=== PATIENT | female | born 1975 | race American Indian/Alaskan Native ===

== ENCOUNTER 2016-12-21 16:49 | Inpatient (IN) | payer MEDICAID ==
[2016-12-21] MEDS ORDERED: TORADOL IV ONE (21:21)
--- NOTE | 2016-12-21 21:25 | Emergency Department Report ---
ED Extremity Problem HPI - General Chief complaint: Extremity Problem,Nontraumatic Stated complaint: LEFT SIDE NUMB/SHARP PAIN Time Seen by Provider: 12/21/16 21:13 Source: patient Mode of arrival: Ambulatory Limitations: No Limitations - History of Present Illness Initial comments: 41-year-old female with a past medical history asthma, hypertension, and tubal ligation presents to the hospital complains of left-sided arm numbness and sharp pains several days. Symptoms are constant and tingling and sharp in nature without aggravating or alleviating factors. Patient also having intermittent frontal headache with dizzy spells. Yesterday she developed left- sided neck pain. Pain overall rated 9/10 in intensity without aggravating or alleviating factors. She denies recent injury. She is right-hand dominant. No reports of weakness or lower extremity symptoms. - Related Data Previous Rx's Medication Instructions Recorded Last Taken Type amLODIPine [Norvasc] 20 mg PO DAILY #30 tablet 09/14/15 12/21/16 Rx Pnv with Ca,No.72/Iron/FA 1 each PO QDAY #30 tablet 11/14/15 12/21/16 Rx [ Vitamin with Low Iron] metroNIDAZOLE 0.75% [Metrogel 1 applicatio TP QHS #1 tube 11/14/15 Unknown Rx 0.75% TOPICAL] Azithromycin [Zithromax Z-RUBÉN] 250 mg PO DAILY #1 package 12/28/15 Unknown Rx Benzonatate [Tessalon Perles] 100 mg PO Q8HR PRN #60 capsule 12/28/15 Unknown Rx predniSONE [Deltasone] 20 mg PO QDAY #10 tab 12/28/15 11/03/15 Rx Allergies Allergy/AdvReac Type Severity Reaction Status Date / Time acetaminophen [From Vicodin] Allergy Swelling Verified 09/14/15 06:28 albuterol Allergy Swelling Verified 02/13/14 18:05 codeine Allergy Swelling Verified 09/14/15 06:28 diphenhydramine HCl Allergy Swelling Verified 09/14/15 06:28 [From Benadryl] hydrocodone bitartrate Allergy Swelling Verified 09/14/15 06:28 [From Vicodin] iodine Allergy Rash Verified 02/13/14 18:05 ketorolac tromethamine Allergy Angioedema Verified 12/22/16 12:02 [From Toradol] morphine Allergy Swelling Verified 09/14/15 06:29 oxycodone [Oxycodone] Allergy Rash Verified 02/13/14 18:05 tramadol Allergy Swelling Verified 09/14/15 06:28 ED Review of Systems ROS: Stated complaint: LEFT SIDE NUMB/SHARP PAIN Other details as noted in HPI Comment: All other systems reviewed and negative Other: Constitutional: No fevers chills Eyes: No eye pain visual changes ENT: No ear pain or throat pain Neck: As per HPI Resp: Denies cough wheezing shortness of breath Cardiovascular: Denies chest pain, palpitations, syncope GI: Denies abdominal pain, nausea, vomiting, diarrhea Musculoskeletal: Denies back pain, joint swelling Skin: Denies rash, lesions, erythema Neurologic: As per HPI Psychiatric: Denies suicidal ideation, hallucinations ED Past Medical Hx - Past Medical History Previous Medical History?: Yes Hx Hypertension: Yes Hx Asthma: Yes - Surgical History Past Surgical History?: Yes Additional Surgical History: ablation for fibroid tumor. TUBAL LIGATION, October 2016 ectopic status post tubal ligation requiring left tube removal - Social History Smoking Status: Never Smoker Substance Use Type: None - Medications Home Medications: Home Medications Medication Instructions Recorded Confirmed Last Taken Type amLODIPine [Norvasc] 20 mg PO DAILY #30 tablet 09/14/15 12/23/16 12/21/16 Rx Pnv with Ca,No.72/Iron/FA 1 each PO QDAY #30 tablet 11/14/15 12/23/16 12/21/16 Rx [ Vitamin with Low Iron] metroNIDAZOLE 0.75% [Metrogel 1 applicatio TP QHS #1 tube 11/14/15 12/23/16 Unknown Rx 0.75% TOPICAL] Azithromycin [Zithromax Z-RUBÉN] 250 mg PO DAILY #1 package 12/28/15 12/23/16 Unknown Rx Benzonatate [Tessalon Perles] 100 mg PO Q8HR PRN #60 capsule 12/28/15 12/23/16 Unknown Rx predniSONE [Deltasone] 20 mg PO QDAY #10 tab 12/28/15 12/23/16 11/03/15 Rx ED Physical Exam - General Limitations: No Limitations - Other Other exam information: General: No limitations, patient is alert in no acute distress Head exam: Atraumatic, normocephalic Eyes exam: Normal appearance, pupils equal reactive to light, extraocular movements intact ENT: Moist mucous membrane, normal oropharynx Neck exam: Normal inspection, full range of motion, left-sided neck tenderness at the sternocleidomastoid and trapezius muscle Respiratory exam: Clear to auscultation bilateral, no wheezes, rales, crackles Cardiovascular: Normal rate and rhythm, normal heart sounds Abdomen: Soft, nondistended, and nontender, with normal bowel sounds, no rebound, or guarding Extremity: Full range of motion normal inspection no deformity Back: Normal Inspection, full range of motion, no tenderness Neurologic: Alert, oriented x3, cranial nerves intact, 5/5 upper and lower extremity strength. Decreased sensation to pinprick on the left upper and left lower extremity Psychiatric: normal affect, normal mood Skin: Warm, dry, intact ED Course Vital Signs 12/21/16 12/21/16 12/21/16 17:31 21:20 21:31 Temperature 98.5 F 98 F 98 F Pulse Rate 74 84 65 Respiratory 16 18 18 Rate Blood Pressure 175/94 Blood Pressure 165/83 158/76 [Left] O2 Sat by Pulse 100 98 98 Oximetry 12/21/16 12/21/16 12/21/16 22:14 22:36 22:37 Temperature 98 F 98 F Pulse Rate 129 H 105 H 119 H Respiratory 20 29 H Rate Blood Pressure 126/61 177/87 Blood Pressure 157/109 177/87 [Left] O2 Sat by Pulse 100 100 Oximetry 12/21/16 12/21/16 12/22/16 22:53 23:31 00:32 Temperature Pulse Rate 130 H 123 H Respiratory 40 H 16 Rate Blood Pressure Blood Pressure 170/89 110/60 [Left] O2 Sat by Pulse 97 100 100 Oximetry 12/22/16 12/22/16 12/22/16 01:25 02:10 02:17 Temperature Pulse Rate 120 H 113 H Respiratory 16 17 18 Rate Blood Pressure Blood Pressure 110/63 [Left] O2 Sat by Pulse 100 98 Oximetry 12/22/16 12/22/16 02:21 02:30 Temperature Pulse Rate 117 H 109 H Respiratory 22 15 Rate Blood Pressure 137/83 Blood Pressure [Left] O2 Sat by Pulse 99 Oximetry - Reevaluation(s) Reevaluation #1: 12/21/16 21:24 Toradol ordered for pain Reevaluation #2: 12/21/16 23:38 Patient developed allergic reaction after receiving Toradol. She began complaining of throat tightness and pruritic rash. Patient is treated with Solu -Medrol without improvement. She has an allergy to Benadryl. Patient also received Decadron and subcutaneous epinephrine 0.3 mg in addition to 2 separate boluses of hydralazine 10 mg to control blood pressure. Patient continued to get more agitated, tachycardic, and complaining that her throat was tight and painful. She refused to speak due to pain however, when she would speak there was no hoarseness or muffled voice sounds noted. Since meds are not helping I offered to intubate pt. This was discussed with, pt, her mother, and her fiance prior to procedure. After intubation case was rediscussed with fiance and mother regarding successful intubation and stabilization - Consultations Consultation #1: 12/22/[address] consult with Dr. diaz ordered - Intubation Time Out Performed: Yes Sedative: Etomidate Mg Given: 20 Paralytic: Succinylcholine Mg Given: 100 Laryngoscope: Tariq Size: 3 ET Tube Size: 7.5 Tube Secured Depth (cm): 20 Tube Secured Location: lips Tube Placement Confirmation: visualized tube passing t, equal breath sounds bilat, no breath sounds over epi, confirmation by capnometr Patient Tolerated Procedure: well Intubation Complications: none Additional Comments: Informed respiratory to advance ET tube to 22 at the lip based on chest x-ray ED Medical Decision Making - Lab Data Result diagrams: 12/23/16 04:05 12/23/16 04:05 Lab Results 12/21/16 12/21/16 Range/Units 21:47 21:47 WBC 5.8 (4.5-11.0) K/mm3 RBC 4.38 (3.65-5.03) M/mm3 Hgb 13.0 (10.1-14.3) gm/dl Hct 39.3 (30.3-42.9) % MCV 90 (79-97) fl MCH 30 (28-32) pg MCHC 33 (30-34) % RDW 13.0 L (13.2-15.2) % Plt Count 225 (140-440) K/mm3 Lymph % (Auto) 45.5 H (13.4-35.0) % [place] % (Auto) 10.5 H (0.0-7.3) % Eos % (Auto) 1.6 (0.0-4.3) % Baso % (Auto) 0.7 (0.0-1.8) % Lymph # 2.7 (1.2-5.4) K/mm3 [place] # 0.6 (0.0-0.8) K/mm3 Eos # 0.1 (0.0-0.4) K/mm3 Baso # 0.0 (0.0-0.1) K/mm3 Seg Neutrophils % 41.7 (40.0-70.0) % Seg Neutrophils # 2.4 (1.8-7.7) K/mm3 Sodium 140 (137-145) mmol/L Potassium 3.7 (3.6-5.0) mmol/L Chloride 103.2 (98-107) mmol/L Carbon Dioxide 24 (22-30) mmol/L Anion Gap 17 mmol/L BUN 10 (7-17) mg/dL Creatinine 0.7 (0.7-1.2) mg/dL Estimated GFR > 60 ml/min BUN/Creatinine Ratio 14.28 % Glucose 93 (65-100) mg/dL Calcium 8.9 (8.4-10.2) mg/dL Magnesium 2.1 (1.7-2.3) mg/dL - Radiology Data Radiology results: report reviewed, image reviewed (cxr: et tube above voi, will advance ) ct head: naf ct cervical spine: naf - Medical Decision Making Initially she comes here for left-sided paresthesias develop an allergic reaction after IV Toradol. Patient failed treatment in the ED and required intubation for airway stabilization. Patient would require ICU admission due to vent - Differential Diagnosis herniated disc, CVA, neuropathy, paresthesias Critical Care Time: Yes Critical care time in (mins) excluding proc time.: 45 (observing at beside, speaking to family on phone, reassesing and directing meds) Critical care attestation.: If time is entered above; I have spent that time in minutes in the direct care of this critically ill patient, excluding procedure time. ED Disposition Clinical Impression: Paresthesia and pain of left extremity, Allergic reaction to drug, HTN ( hypertension), Endotracheally intubated Disposition: OP ADMITTED IP TO THIS HOSP Is pt being admited?: Yes Condition: Stable Time of Disposition: 00:56 (Matias/hosp)
[2016-12-21] MEDS ORDERED: QUELICIN ONE (21:56)
[2016-12-21] MEDS ORDERED: AMIDATE IV ONE (21:56)
[2016-12-21 22:06] LABS: Basophils % (Auto) 0.7 % (0.0-1.8); Eosinophils % (Auto) 1.6 % (0.0-4.3); Hematocrit 39.3 % (30.3-42.9); Mean Corpuscular HGB Conc 33 % (30-34); Mean Corpuscular Hemoglobin 30 pg (28-32); Mean Corpuscular Volume 90 fl (79-97); Platelet Count 225 K/mm3 (140-440); Red Blood Count 4.38 M/mm3 (3.65-5.03); White Blood Count 5.8 K/mm3 (4.5-11.0)
[2016-12-21] MEDS ORDERED: APRESOLINE ONE (22:13)
[2016-12-21 22:20] LABS: Anion Gap 17 mmol/L; BUN/Creatinine Ratio 14.28; Blood Urea Nitrogen 10 mg/dL (7-17); Calcium 8.9 mg/dL (8.4-10.2); Carbon Dioxide 24 mmol/L (22-30); Chloride 103.2 mmol/L (98-107); Glucose 93 mg/dL (65-100); Magnesium 2.1 mg/dL (1.7-2.3); Potassium 3.7 mmol/L (3.6-5.0); Sodium 140 mmol/L (137-145)
[2016-12-21] MEDS ORDERED: ADRENALIN ONE ×2 (22:24→22:26)
[2016-12-21] MEDS ORDERED: DECADRON ONE (22:25)
[2016-12-21] MEDS ORDERED: ADRENALINE P/F SUB-Q ONE (22:27)
[2016-12-21] MEDS ORDERED: APRESOLINE IV ONE (22:27)
[2016-12-21] MEDS ORDERED: DECADRON IV ONE (22:29)
[2016-12-21] MEDS ORDERED: VASELINE LIP THERAPY TP PRN (23:31)
[2016-12-21] MEDS ORDERED: ARTIFICIAL TEARS OPHTH OINT OU PRN (23:31)
[2016-12-21] MEDS ORDERED: ATIVAN ONE (23:44)
[2016-12-21] MEDS ORDERED: NACL 0.9% 500 ML IV SCH (23:45)
[2016-12-21] MEDS ORDERED: ATIVAN IV ONE (23:47)
[2016-12-21] MEDS: DIPRIVAN 10 MG/ML 1,000 MG/100 ML BOTTLE IV SCH (23:50)
--- NOTE | 2016-12-22 00:38 | Cat Scan Report ---
FINAL REPORT PROCEDURE: CT HEAD/BRAIN WO CON TECHNIQUE: Computerized tomography of the head was performed without contrast material. HISTORY: left arm and leg paresthesia COMPARISON: No prior studies are available for comparison. FINDINGS: Skull and scalp: Normal. Paranasal sinuses: Normal. Ventricles and subarachnoid spaces: Normal. Cerebrum: No evidence of hemorrhage, acute infarction or mass . Cerebellum and brainstem: No evidence of hemorrhage, acute infarction or mass. Vasculature: Normal. Comments: None. IMPRESSION: Normal Examination
--- NOTE | 2016-12-22 00:41 | Cat Scan Report ---
FINAL REPORT PROCEDURE: CT CERVICAL SPINE WO CON TECHNIQUE: Computerized tomography of the cervical spine was performed from the skull base to T1 without contrast material. HISTORY: left arm and leg paresthesia COMPARISON: No prior studies are available for comparison. FINDINGS: The alignment of the vertebral bodies is normal. The heights of the vertebral bodies and the disc spaces are maintained. No acute fracture or dislocation of the cervical spine. The spinal canal is adequate at all levels. IMPRESSION: No evidence of acute fracture or dislocation of the cervical spine..
--- NOTE | 2016-12-22 01:24 | History and Physical Report ---
History of Present Illness Date of examination: 12/22/16 Date of admission: 12/22/16 00:56 Chief complaint: Respiratory failure History of present illness: 41-year-old -[place] female presented to the emergency department for complaints of left-sided arm tingling and pain. Since yesterday she was complaining of neck pain. No weakness, slurred speech. Patient had multiple medication allergies. Patient presented to the emergency department and she was given Toradol for the pain. After that patient started to tightness, difficulty speaking, swelling of the face. Patient patient was intubated and mechanically ventilated by ER physician. Past History Past Medical History: hypertension, other (asthma) Past Surgical History: Other (tubal ligation) Social history: full code, other (couldn't obtained because of patient is intubated and sedated.) Family history: other (couldn't obtained because of patient is intubated and sedated.) Medications and Allergies Allergies Allergy/AdvReac Type Severity Reaction Status Date / Time acetaminophen [From Vicodin] Allergy Swelling Verified 09/14/15 06:28 albuterol Allergy Swelling Verified 02/13/14 18:05 codeine Allergy Swelling Verified 09/14/15 06:28 diphenhydramine HCl Allergy Swelling Verified 09/14/15 06:28 [From Benadryl] hydrocodone bitartrate Allergy Swelling Verified 09/14/15 06:28 [From Vicodin] iodine Allergy Rash Verified 02/13/14 18:05 morphine Allergy Swelling Verified 09/14/15 06:29 oxycodone [Oxycodone] Allergy Rash Verified 02/13/14 18:05 tramadol Allergy Swelling Verified 09/14/15 06:28 Home Medications Medication Instructions Recorded Confirmed Last Taken Type amLODIPine [Norvasc] 20 mg PO DAILY #30 tablet 09/14/15 11/13/15 Unknown Rx Pnv with Ca,No.72/Iron/FA 1 each PO QDAY #30 tablet 11/14/15 Unknown Rx [ Vitamin with Low Iron] metroNIDAZOLE 0.75% [Metrogel 1 applicatio TP QHS #1 tube 11/14/15 Unknown Rx 0.75% TOPICAL] Azithromycin [Zithromax Z-RUBÉN] 250 mg PO DAILY #1 package 12/28/15 Unknown Rx Benzonatate [Tessalon Perles] 100 mg PO Q8HR PRN #60 capsule 12/28/15 Unknown Rx predniSONE [Deltasone] 20 mg PO QDAY #10 tab 12/28/15 Unknown Rx Active Meds: Active Medications Hydrophilic Ointment (Vaseline Lip Therapy) 1 applic TP Q2HR PRN PRN Reason: Dry Lips Propofol (Diprivan 10 Mg/Ml) 1,000 mg in 100 mls @ 2.541 mls/hr IV TITR POONAM; 5 MCG/KG/MIN PRN Reason: Protocol Methylprednisolone Sodium Succinate (Solu-Medrol) 125 mg IV Q8HR POONAM Multi-Ingred Cream/Lotion/Oil/Oint (Artificial Tears Ophth Oint) 1 applic OU Q4HR PRN PRN Reason: Dry Eye(s) Sodium Chloride (Nacl 0.9% 500 Ml) 1 ml IV DIRECT POONAM Review of Systems ROS unobtainable: due to endotracheal tube (couldn't obtained because of patient is intubated and sedated.), due to mental status (couldn't obtained because of patient is intubated and sedated.) Exam - Physical Exam Narrative exam: Patient is intubated, mechanically ventilated and sedated. The patient appeared well nourished and normally developed. Vital signs as documented. Head exam is unremarkable. lip and face swelling. No scleral icterus . Neck is without jugular venous distension, thyromegaly, or carotid bruits. Lungs are clear to auscultation. Cardiac exam reveals regular rate and Rhythm. First and second heart sounds normal. No murmurs, rubs or gallops. Abdominal exam reveals normal bowel sounds, no masses, no organomegaly and no aortic enlargement. Extremities are nonedematous and both femoral and pedal pulses are normal. RADIOLOGICAL HEALTH SPECIALIST: Alert and oriented 3. No focal weakness. - Constitutional Vitals: Temp Pulse Resp BP Pulse Ox 98 F 123 H 16 110/60 100 12/21/16 22:37 12/21/16 23:31 12/21/16 23:31 12/21/16 23:31 12/22/16 00:32 Results - Labs CBC & Chem 7: 12/21/16 21:47 12/21/16 21:47 Labs: Laboratory Last Values WBC 5.8 K/mm3 (4.5-11.0) 12/21/16 21:47 RBC 4.38 M/mm3 (3.65-5.03) 12/21/16 21:47 Hgb 13.0 gm/dl (10.1-14.3) 12/21/16 21:47 Hct 39.3 % (30.3-42.9) 12/21/16 21:47 MCV 90 fl (79-97) 12/21/16 21:47 MCH 30 pg (28-32) 12/21/16 21:47 MCHC 33 % (30-34) 12/21/16 21:47 RDW 13.0 % (13.2-15.2) L 12/21/16 21:47 Plt Count 225 K/mm3 (140-440) 12/21/16 21:47 Lymph % (Auto) 45.5 % (13.4-35.0) H 12/21/16 21:47 [place] % (Auto) 10.5 % (0.0-7.3) H 12/21/16 21:47 Eos % (Auto) 1.6 % (0.0-4.3) 12/21/16 21:47 Baso % (Auto) 0.7 % (0.0-1.8) 12/21/16 21:47 Lymph # 2.7 K/mm3 (1.2-5.4) 12/21/16 21:47 [place] # 0.6 K/mm3 (0.0-0.8) 12/21/16 21:47 Eos # 0.1 K/mm3 (0.0-0.4) 12/21/16 21:47 Baso # 0.0 K/mm3 (0.0-0.1) 12/21/16 21:47 Seg Neutrophils % 41.7 % (40.0-70.0) 12/21/16 21:47 Seg Neutrophils # 2.4 K/mm3 (1.8-7.7) 12/21/16 21:47 Sodium 140 mmol/L (137-145) 12/21/16 21:47 Potassium 3.7 mmol/L (3.6-5.0) 12/21/16 21:47 Chloride 103.2 mmol/L (98-107) 12/21/16 21:47 Carbon Dioxide 24 mmol/L (22-30) 12/21/16 21:47 Anion Gap 17 mmol/L 12/21/16 21:47 BUN 10 mg/dL (7-17) 12/21/16 21:47 Creatinine 0.7 mg/dL (0.7-1.2) 12/21/16 21:47 Estimated GFR > 60 ml/min 12/21/16 21:47 BUN/Creatinine Ratio 14.28 % 12/21/16 21:47 Glucose 93 mg/dL (65-100) 12/21/16 21:47 Calcium 8.9 mg/dL (8.4-10.2) 12/21/16 21:47 Magnesium 2.1 mg/dL (1.7-2.3) 12/21/16 21:47 - Imaging and Cardiology CT Scan - head: report reviewed (no acute intracranial process) Assessment and Plan Assessment and plan: Angioedema 2/2 toradol allergy Acute respiratory failure Left arm tingling Left neck pain - CT head and neck is negative - Patient is intubated and mechanically ventilated - Solu-Medrol Prophylaxis - lovenox Disposition - Admit to the ICU Advance Directives: Yes VTE prophylaxis?: Chemical Plan of care discussed with patient/family: Yes
[2016-12-22] MEDS ORDERED: ATIVAN IV ONE (01:32)
[2016-12-22] MEDS ORDERED: DIPRIVAN 10 MG/ML 1,000 MG/100 ML BOTTLE IV ONE ×2 (01:33→06:43)
[2016-12-22] MEDS: DIPRIVAN 10 MG/ML 1,000 MG/100 ML BOTTLE IV SCH (04:13)
[2016-12-22 05:54] LABS: ISTAT Base Excess -1; ISTAT HCO3 23.6; ISTAT PH 7.402 (7.35-7.45); ISTAT PO2 161 (80-105); ISTAT SO2 99; ISTAT TCO2 25
[2016-12-22 06:30] LABS: ISTAT Base Excess -3; ISTAT HCO3 22.1; ISTAT PH 7.384 (7.35-7.45); ISTAT PO2 72 (80-105); ISTAT SO2 94; ISTAT TCO2 23
--- NOTE | 2016-12-22 07:42 | XRay Report ---
Single view chest: Compared to 12/28/15. History: ET tube placement. Findings: Normal cardiomediastinal silhouette. Trachea is midline. Tip of endotracheal tube in normal position. No consolidation, pneumothorax or pleural effusion. Impression: Tip of endotracheal tube in normal position. No acute lung changes.
--- NOTE | 2016-12-22 08:21 | Admit Criteria Form ---
Admission Criteria Documentation: RESPIRATORY FAILURE GRG Clinical Indications for Admission to Inpatient Care (Place 'X' for any and all applicable criteria): Hospital admission is needed for appropriate care of the patient because of acute respiratory failure or insufficiency as indicated by ANY ONE of the following(1)(2)(3)(4)(5)(6)(7)(8): []I. Mechanical ventilation needed (acute invasive or noninvasive) [ ]II. Severe ventilation deficit as indicated by ANY ONE of the following (9) [ ]a) Respiratory acidosis (pH less than 7.32 and partial pressure of carbon dioxide greater than 40 mm Hg (5.3 kPa)) [ ]b) Partial pressure of carbon dioxide greater than 44 mm Hg (5.9 kPa ) (new) [ ]c) Airflow measurements less than 25% of predicted (eg, peak expiratory flow rate less than 100 L/minute) [ ]d) Forced vital capacity less than 15 mL/kg of ideal body weight, or 50% decrease in vital capacity from baseline [ ]III. Noncardiac pulmonary edema not resolving with rapid emergency treatment (8) []IV. Severe respiratory distress as indicated by ANY ONE of the following: []a) Severe tachypnea (respiratory rate greater than 30, greater than 45 for 6-month-old, greater than 60 for ) []b) Severe hypoxemia (partial pressure of oxygen less than 50 mm Hg ( 6.7 kPa) on greater than 50% oxygen or partial pressure of oxygen to FIO2 ratio less than 200) [ ]c) Mental status deterioration from respiratory disease [X]V. Airway obstruction or inadequate protection [A](10)(11) The original [employer] content created by [employer] has been revised. The portions of the content which have been revised are identified through the use of italic text or in bold, and [employer] has neither reviewed nor approved the modified material. All other unmodified content is copyright [employer]. Please see references footnoted in the original [employer] edition 2016 Admission Criteria Met: Yes
--- NOTE | 2016-12-22 09:29 | XRay Report ---
Single view chest: Compared to 12/21/16. History: Followup of respiratory failure. Findings: Normal cardiomediastinal silhouette. Trachea is midline. Tip of endotracheal tube in normal position. No consolidation, pneumothorax or pleural effusion. Impression: No acute cardiopulmonary findings.
[2016-12-22] MEDS: LOVENOX SUB-Q SCH (09:43)
[2016-12-22] MEDS: PEPCID IV SCH ×2 (09:44→21:45)
[2016-12-22] MEDS ORDERED: PANCREAZE DR 10,500 UNIT FEEDTUBE PRN (10:09)
[2016-12-22] MEDS ORDERED: SIMPLE SYRUP FEEDTUBE PRN ×2 (10:09)
[2016-12-22] MEDS ORDERED: SODIUM BICARBONATE FEEDTUBE PRN (10:09)
[2016-12-22 10:30] LABS: ISTAT Base Excess -3; ISTAT HCO3 21.9; ISTAT PCO2 33.9 (35-45); ISTAT PH 7.418 (7.35-7.45); ISTAT PO2 125 (80-105); ISTAT SO2 99; ISTAT TCO2 23
--- NOTE | 2016-12-22 10:56 | Progress Note ---
Assessment and Plan Assessment and plan: --Angioedema Allergic reaction to Toradol Continue steroids, currently she support, antihistamines --Acute respiratory failure secondary to angioedema Ventilatory support, nebulizers, steroids, pulmonary following ----Left sided tingling and numbness Workup is in progress --DVT prophylaxis with Lovenox --GI prophylaxis with Pepcid --Full CODE STATUS Closely monitor the patient had just the management as needed Consults and recommendations noted and appreciated Plan of care discussed with the patient and the family member at the bedside The high probability of a clinically significant, sudden or life threatening deterioration of the [respiratory, immunologic] system(s) required my full and direct attention, intervention and personal management. The aggregate critical care time was [32] minutes. This time is in addition to time spent performing reported procedures but includes the following: [x] Data Review and interpretation [x] Patient assessment and monitoring of vital signs [x] Documentation [x] Medication orders and management History Interval history: Patient seen and evaluated this morning medical records reviewed Admitted with angioedema, secondary to drug allergy, and patient is orally intubated on ventilatory support History not really clear, patient boyfriend at the bedside Patient is awake and able to communicate on ventilatory support not in acute distress Hospitalist Physical - Constitutional Vitals: Temp Pulse Resp BP Pulse Ox 98.4 F 93 H 16 139/77 100 12/22/16 08:00 12/22/16 10:21 12/22/16 10:21 12/22/16 10:21 12/22/16 10:21 General appearance: Present: no acute distress, other (intubated on ventilatory support ) - EENT Eyes: Present: PERRL, EOM intact - Neck Neck: Present: supple, normal ROM - Respiratory Respiratory effort: normal Respiratory: bilateral: diminished, rhonchi (occasional) - Cardiovascular Rhythm: regular Heart Sounds: Present: S1 & S2 - Extremities Extremities: no ischemia, pulses intact, pulses symmetrical - Abdominal General gastrointestinal: soft, non-tender, non-distended, normal bowel sounds - Integumentary Integumentary: Present: clear, warm - Psychiatric Psychiatric: appropriate mood/affect, cooperative - Neurologic Neurologic: other (intubated On ventilator support) Results - Labs CBC & Chem 7: 12/21/16 21:47 12/21/16 21:47 Labs: Laboratory Last Values WBC 5.8 K/mm3 (4.5-11.0) 12/21/16 21:47 RBC 4.38 M/mm3 (3.65-5.03) 12/21/16 21:47 Hgb 13.0 gm/dl (10.1-14.3) 12/21/16 21:47 Hct 39.3 % (30.3-42.9) 12/21/16 21:47 MCV 90 fl (79-97) 12/21/16 21:47 MCH 30 pg (28-32) 12/21/16 21:47 MCHC 33 % (30-34) 12/21/16 21:47 RDW 13.0 % (13.2-15.2) L 12/21/16 21:47 Plt Count 225 K/mm3 (140-440) 12/21/16 21:47 Lymph % (Auto) 45.5 % (13.4-35.0) H 12/21/16 21:47 [place] % (Auto) 10.5 % (0.0-7.3) H 12/21/16 21:47 Eos % (Auto) 1.6 % (0.0-4.3) 12/21/16 21:47 Baso % (Auto) 0.7 % (0.0-1.8) 12/21/16 21:47 Lymph # 2.7 K/mm3 (1.2-5.4) 12/21/16 21:47 [place] # 0.6 K/mm3 (0.0-0.8) 12/21/16 21:47 Eos # 0.1 K/mm3 (0.0-0.4) 12/21/16 21:47 Baso # 0.0 K/mm3 (0.0-0.1) 12/21/16 21:47 Seg Neutrophils % 41.7 % (40.0-70.0) 12/21/16 21:47 Seg Neutrophils # 2.4 K/mm3 (1.8-7.7) 12/21/16 21:47 POC ABG pH 7.418 (7.35-7.45) 12/22/16 10:21 POC ABG pCO2 33.9 (35-45) L 12/22/16 10:21 POC ABG pO2 125 (80-105) H 12/22/16 10:21 POC ABG HCO3 21.9 12/22/16 10:21 POC ABG Total CO2 23 12/22/16 10:21 POC ABG O2 Sat 99 12/22/16 10:21 POC ABG Base Excess -3 12/22/16 10:21 FiO2 25 % 12/22/16 10:21 Sodium 140 mmol/L (137-145) 12/21/16 21:47 Potassium 3.7 mmol/L (3.6-5.0) 12/21/16 21:47 Chloride 103.2 mmol/L (98-107) 12/21/16 21:47 Carbon Dioxide 24 mmol/L (22-30) 12/21/16 21:47 Anion Gap 17 mmol/L 12/21/16 21:47 BUN 10 mg/dL (7-17) 12/21/16 21:47 Creatinine 0.7 mg/dL (0.7-1.2) 12/21/16 21:47 Estimated GFR > 60 ml/min 12/21/16 21:47 BUN/Creatinine Ratio 14.28 % 12/21/16 21:47 Glucose 93 mg/dL (65-100) 12/21/16 21:47 Calcium 8.9 mg/dL (8.4-10.2) 12/21/16 21:47 Magnesium 2.1 mg/dL (1.7-2.3) 12/21/16 21:47
--- NOTE | 2016-12-22 11:31 | Consultation ---
History of Present Illness Consult date: 12/22/16 Requesting physician: JOHN MTZ Reason for consult: other (Acute Resp Failure) History of present illness: PULMONARY/CCM CONSULT NOTE (Full dictation # [id number]) Please see dictated notes for full details Past History Past Medical History: hypertension, other (asthma) Past Surgical History: Other (tubal ligation) Social history: full code, other (couldn't obtained because of patient is intubated and sedated.) Family history: other (couldn't obtained because of patient is intubated and sedated.) Medications and Allergies Allergies Allergy/AdvReac Type Severity Reaction Status Date / Time acetaminophen [From Vicodin] Allergy Swelling Verified 09/14/15 06:28 albuterol Allergy Swelling Verified 02/13/14 18:05 codeine Allergy Swelling Verified 09/14/15 06:28 diphenhydramine HCl Allergy Swelling Verified 09/14/15 06:28 [From Benadryl] hydrocodone bitartrate Allergy Swelling Verified 09/14/15 06:28 [From Vicodin] iodine Allergy Rash Verified 02/13/14 18:05 ketorolac tromethamine Allergy Angioedema Verified 12/22/16 12:02 [From Toradol] morphine Allergy Swelling Verified 09/14/15 06:29 oxycodone [Oxycodone] Allergy Rash Verified 02/13/14 18:05 tramadol Allergy Swelling Verified 09/14/15 06:28 Home Medications Medication Instructions Recorded Confirmed Last Taken Type amLODIPine [Norvasc] 20 mg PO DAILY #30 tablet 09/14/15 11/13/15 Unknown Rx Pnv with Ca,No.72/Iron/FA 1 each PO QDAY #30 tablet 11/14/15 Unknown Rx [ Vitamin with Low Iron] metroNIDAZOLE 0.75% [Metrogel 1 applicatio TP QHS #1 tube 11/14/15 Unknown Rx 0.75% TOPICAL] Azithromycin [Zithromax Z-RUBÉN] 250 mg PO DAILY #1 package 12/28/15 Unknown Rx Benzonatate [Tessalon Perles] 100 mg PO Q8HR PRN #60 capsule 12/28/15 Unknown Rx predniSONE [Deltasone] 20 mg PO QDAY #10 tab 12/28/15 Unknown Rx Active Meds: Active Medications Lipase/Protease/Amylase (Poncho Falcon 10,500 Unit) 1 each FEEDTUBE PRN PRN PRN Reason: For Clogged Feeding Tube Enoxaparin Sodium (Lovenox) 40 mg SUB-Q QDAY@1000 POONAM Last Admin: 12/22/16 09:43 Dose: 40 mg Famotidine (Pepcid) 20 mg IV BID [facility] Last Admin: 12/22/16 09:44 Dose: 20 mg Hydrophilic Ointment (Vaseline Lip Therapy) 1 applic TP Q2HR PRN PRN Reason: Dry Lips Propofol (Diprivan 10 Mg/Ml) 1,000 mg in 100 mls @ 2.541 mls/hr IV TITR POONAM; 5 MCG/KG/MIN PRN Reason: Protocol Last Titration: 12/22/16 08:30 Dose: 0 mcg/kg/min, 0 mls/hr Methylprednisolone Sodium Succinate (Solu-Medrol) 125 mg IV Q8HR [facility] Last Admin: 12/22/16 05:12 Dose: 125 mg Multi-Ingred Cream/Lotion/Oil/Oint (Artificial Tears Ophth Oint) 1 applic OU Q4HR PRN PRN Reason: Dry Eye(s) Simple Syrup (Simple Syrup) 15 ml FEEDTUBE PRN PRN PRN Reason: Hypoglycemia Simple Syrup (Simple Syrup) 30 ml FEEDTUBE PRN PRN PRN Reason: Hypoglycemia Sodium Bicarbonate (Sodium Bicarbonate) 325 mg FEEDTUBE PRN PRN PRN Reason: For Clogged Feeding Tube Sodium Chloride (Nacl 0.9% 500 Ml) 1 ml IV DIRECT POONAM Physical Examination Vital signs: Vital Signs Temp Pulse Resp BP Pulse Ox 98.5 F 74 16 175/94 100 12/21/16 17:31 12/21/16 17:31 12/21/16 17:31 12/21/16 17:31 12/21/16 17:31 Results - Laboratory Findings CBC and BMP: 12/21/16 21:47 12/21/16 21:47 ABG POC ABG pH 7.418 (7.35-7.45) 12/22/16 10:21 POC ABG pCO2 33.9 (35-45) L 12/22/16 10:21 POC ABG pO2 125 (80-105) H 12/22/16 10:21 POC ABG HCO3 21.9 12/22/16 10:21 POC ABG Total CO2 23 12/22/16 10:21 POC ABG O2 Sat 99 12/22/16 10:21 Abnormal lab findings: Abnormal Labs 12/22/16 12/22/16 04:59 10:21 POC ABG pCO2 33.9 L POC ABG pO2 161 H 125 H
[2016-12-22] MEDS ORDERED: S2 RACEPINEPHRINE 2.25% IH PRN (14:00)
[2016-12-22] MEDS: D5/0.45NS 1,000 ML IV SCH (19:03)
[2016-12-22] MEDS: NAPROSYN PO PRN (20:23)
--- NOTE | 2016-12-23 02:07 | Consultation ---
CONSULTING PHYSICIAN: Lara Marie MD REASON FOR CONSULTATION: Acute respiratory failure, allergic reaction. CHIEF COMPLAINT AND HISTORY OF PRESENT ILLNESS: The patient is a 41-year-old -[place] female with a past medical history significant, I guess for a diagnosis of asthma, came into the Emergency Room complaining of left-sided arm tingling and pain since yesterday. Since the day before presentation, she was also complaining of neck pain. No weakness, no slurred speech. She had multiple medication allergies and as a result Toradol was chosen to be given to her for pain. After she got the Toradol shot, she started to complain of tightness, difficulty speaking, her face swell up, and she was emergently intubated and mechanically ventilated and ICU admission was requested. When I stopped by to see her, she was resting in bed. She was on pressure support trial, doing well. Still felt a little bit like there was some tightness in her throat, but denied any pain symptoms at that time. Now with regards to her tobacco use/abuse history, described herself as a never smoker in the Emergency Room. That really is as much of the history of presentation as I have. PAST MEDICAL HISTORY: Hypertension, asthma. PAST SURGICAL HISTORY: She has had ablation of a fibroid tumor and had bilateral tubal ligations and in 10/2016, she had an ectopic requiring removal of the left fallopian tube. MEDICATIONS: She was on at the time I stopped by to see her, according to the medication administration record included the following: Lovenox 40 mg subcutaneous daily, Pepcid 20 mg IV b.i.d., Solu-Medrol 125 mg IV q.8h. She had been on a propofol drip for sedation earlier on. ALLERGIES: To Tylenol, to albuterol, to codeine, to Benadryl, amongst other allergies and now Toradol. DIET: Slightly obese. Denies any acute weight loss or gain in the preceding few weeks to months. FAMILY AND SOCIAL HISTORY: Lives in the community. Denied alcohol, tobacco, or illicit drug use or abuse. REVIEW OF SYSTEMS: No loss of consciousness. No new onset seizures. No new onset focal weakness. She had the neck pain. No gross hematochezia or melena. No gross hematuria or dysuria. No hematemesis, no hemoptysis, no emesis. Complete review of systems obtained. Pertinent positives and/or negatives as in body of history above, otherwise noncontributory. PHYSICAL EXAMINATION: VITAL SIGNS: At presentation, she was afebrile, temperature 98.5, pulse 74, respiratory rate 16, blood pressure 175/94, oxygen sats were 100%, inspired oxygen concentration was not recorded. HEAD, EYES, EARS, NOSE, AND THROAT: Pupils are equal, round, about 5 mm, reactive to light. Extraocular muscle movements appear intact. Endotracheal tube was in place, taped at the lips around 23-24 cm. LUNGS: Auscultation of both lung salazar unremarkable. Lungs are clear bilaterally. Good bilateral air movement. NECK: Grossly, no palpable lymph nodes in the supraclavicular or submandibular lymph node chains. HEART: Heart sounds 1 and 2 are heard. There were regular rate and rhythm at the time of my evaluation. ABDOMEN: Soft, flat. Bowel sounds positive, nontender. EXTREMITIES: Without overt digital clubbing, cyanosis, or pedal edema. NEUROLOGIC: The exam was grossly nonfocal. LABORATORY DATA: From my review are as follows: White cell count 5800, hemoglobin 13.0, hematocrit 39.3, and platelets 225. Arterial blood gas showed a pH of 7.38, pCO2 of 37, pO2 of 72 that was on 50% FiO2 at that time. Serum sodium 140, potassium 3.7, chloride 103, bicarbonate 24, BUN 10, creatinine 0.7, and glucose of 93. On CPAP, arterial blood gas showed a pH of 7.42, pCO2 of 34, pO2 of 125 that was on CPAP 10/5 and 25% FiO2. RADIOGRAPHIC STUDIES: Cervical spine CT was done and it was resulted as no acute fracture or dislocation. A CT of the head also was done. It was a normal examination. A chest x-ray was also done. I have reviewed the chest x-ray. I have also reviewed the radiologist's interpretation, essentially no acute findings. Endotracheal tube tip is at the level of the aortic knob. No gross pneumothorax, no gross bony fracture. ASSESSMENT AND PLAN: We have a young lady in with a reported suspicious allergic reaction to Toradol. From a respiratory standpoint, she is doing well on a pressure support trial. Hopefully, we can extubate her if she meets all other parameters too. Bronchodilators will be on a p.r.n. basis. Bilevel positive airway pressure ventilation therapy will be offered post-extubation. I should mention a leak test was done and she has good air movement around the ET tube. Subjectively, she feels like her throat is still tight and some of that may sensation of the endotracheal tube. We will give her a trial of extubation with p.r.n. BiPAP for support. Cardiovascular tay, she is doing fine. No acute indication for cardiology evaluation or further workup. GI tay, tube feeds are on hold, oral nutrition will be the feeding modality of choice post-extubation after a swallow evaluation, I will put her on GI prophylaxis. From a renal standpoint, no major electrolyte abnormalities. Inputs and outputs will be monitored. Electrolytes will be monitored and corrected as necessary. 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 No acute indication for neuro imaging at this point. She has already had the necessary testing appropriately at presentation in the Emergency Room. We will follow her clinically going forwards. From an infectious disease standpoint, no signs and symptoms of overwhelming sepsis. No acute indication for anti-infectives. We will follow her clinically. From a general and hospital healthcare maintenance standpoint, she is on DVT prophylaxis. She will be put on GI prophylaxis. Flu and pneumonia vaccination will be per protocol. Thank you very much for the consult, Dr. Marie. We will follow along and make further recommendations as picture progresses/becomes clearer. At this point, I have spent about 30-35 minutes of critical care time without overlap and excluding any procedural time that may be necessary. She is critically ill on life-sustaining interventions including mechanical ventilatory support at higher risk for further deterioration including . JOB# [id number] FAITH/NILS
[2016-12-23] MEDS: D5/0.45NS 1,000 ML IV SCH ×2 (03:09→15:11)
[2016-12-23 04:30] LABS: Basophils % (Auto) 0.1 % (0.0-1.8); Hematocrit 37.3 % (30.3-42.9); Hemoglobin 12.3 gm/dl (10.1-14.3); Mean Corpuscular HGB Conc 33 % (30-34); Mean Corpuscular Hemoglobin 29 pg (28-32); Mean Corpuscular Volume 89 fl (79-97); Platelet Count 226 K/mm3 (140-440); Red Blood Count 4.17 M/mm3 (3.65-5.03); Red Cell Distribution Width 13.2 % (13.2-15.2); White Blood Count 12.4 K/mm3 (4.5-11.0)
[2016-12-23 05:16] LABS: Alanine Aminotransferase 7 units/L (7-56); Albumin 3.3 g/dL (3.9-5); Alkaline Phosphatase 41 units/L (35-129); BUN/Creatinine Ratio 21.25; Bilirubin,Total 0.4 mg/dL (0.1-1.2); Blood Urea Nitrogen 17 mg/dL (7-17); Calcium 8.5 mg/dL (8.4-10.2); Carbon Dioxide 22 mmol/L (22-30); Glucose 150 mg/dL (65-100); Magnesium 2.3 mg/dL (1.7-2.3); Total Protein 6.7 g/dL (6.3-8.2)
[2016-12-23 05:17] LABS: Anion Gap 14 mmol/L; Chloride 104.7 mmol/L (98-107); Potassium 3.8 mmol/L (3.6-5.0); Sodium 137 mmol/L (137-145)
[2016-12-23 05:22] LABS: Bilirubin,Direct < 0.2 mg/dL (0-0.2); Bilirubin,Indirect 0.2 mg/dL
[2016-12-23] MEDS: PEPCID IV SCH (09:48)
[2016-12-23] MEDS: LOVENOX SUB-Q SCH (09:48)
[2016-12-23] MEDS ORDERED: PEPCID PO SCH (10:00)
--- NOTE | 2016-12-23 11:19 | Progress Note ---
Assessment and Plan - Patient Problems (1) Acute respiratory failure Current Visit: Yes Status: Acute Qualifiers: Respiratory failure complication: R Plan to address problem: - resolved - avoid toradol - transfer to medical floor OK (2) Allergic reaction to drug Current Visit: Yes Status: Acute Qualifiers: Encounter type: E Plan to address problem: - continue systemic steroid taper - avoid re-challenge Subjective Date of service: 12/23/16 Principal diagnosis: Acute Respiratory Failure; Angioedema reaction Interval history: Seen and examined at bedside; 24 hour events reviewed; nursing and respiratory care staff consulted; no adverse overnight events reported to me; resting peacefullly in bed; denies chest pains or increased SOB; still with sensation of throat tightness but clinically without stridor or labored breathing Objective Vital Signs - 12hr 12/22/16 12/22/16 12/22/16 23:21 23:26 23:31 Temperature Pulse Rate 81 85 Pulse Rate [ 83 From Monitor] Pulse Rate [ 83 Left Dorsalis Pedis] Pulse Rate [ 83 Left Radial] Pulse Rate [ 83 Right Dorsalis Pedis] Pulse Rate [ 83 Right Radial] Respiratory 23 15 23 Rate Blood Pressure 95/54 109/55 O2 Sat by Pulse 97 98 98 Oximetry 12/22/16 12/22/16 12/22/16 23:41 23:51 23:52 Temperature 97.9 F Pulse Rate 85 82 Pulse Rate [ From Monitor] Pulse Rate [ Left Dorsalis Pedis] Pulse Rate [ Left Radial] Pulse Rate [ Right Dorsalis Pedis] Pulse Rate [ Right Radial] Respiratory 24 18 Rate Blood Pressure 109/55 109/55 O2 Sat by Pulse 99 98 Oximetry 12/23/16 12/23/16 12/23/16 00:00 00:11 00:21 Temperature Pulse Rate 77 86 81 Pulse Rate [ From Monitor] Pulse Rate [ Left Dorsalis Pedis] Pulse Rate [ Left Radial] Pulse Rate [ Right Dorsalis Pedis] Pulse Rate [ Right Radial] Respiratory 16 16 19 Rate Blood Pressure 111/54 109/55 109/55 O2 Sat by Pulse 97 98 99 Oximetry 12/23/16 12/23/16 12/23/16 00:31 00:41 00:51 Temperature Pulse Rate 87 78 83 Pulse Rate [ From Monitor] Pulse Rate [ Left Dorsalis Pedis] Pulse Rate [ Left Radial] Pulse Rate [ Right Dorsalis Pedis] Pulse Rate [ Right Radial] Respiratory 19 20 25 H Rate Blood Pressure 109/55 109/55 119/63 O2 Sat by Pulse 99 98 98 Oximetry 12/23/16 12/23/16 12/23/16 01:00 01:11 01:21 Temperature Pulse Rate 88 84 86 Pulse Rate [ From Monitor] Pulse Rate [ Left Dorsalis Pedis] Pulse Rate [ Left Radial] Pulse Rate [ Right Dorsalis Pedis] Pulse Rate [ Right Radial] Respiratory 27 H 26 H 23 Rate Blood Pressure 108/63 108/63 108/63 O2 Sat by Pulse 96 97 96 Oximetry 12/23/16 12/23/16 12/23/16 01:30 01:41 01:51 Temperature Pulse Rate 83 84 84 Pulse Rate [ From Monitor] Pulse Rate [ Left Dorsalis Pedis] Pulse Rate [ Left Radial] Pulse Rate [ Right Dorsalis Pedis] Pulse Rate [ Right Radial] Respiratory 22 23 23 Rate Blood Pressure 108/55 108/55 108/55 O2 Sat by Pulse 95 96 96 Oximetry 12/23/16 12/23/16 12/23/16 02:00 02:11 02:21 Temperature Pulse Rate 81 80 79 Pulse Rate [ From Monitor] Pulse Rate [ Left Dorsalis Pedis] Pulse Rate [ Left Radial] Pulse Rate [ Right Dorsalis Pedis] Pulse Rate [ Right Radial] Respiratory 22 22 21 Rate Blood Pressure 106/58 108/55 108/55 O2 Sat by Pulse 95 96 96 Oximetry 12/23/16 12/23/16 12/23/16 02:31 02:41 02:51 Temperature Pulse Rate 78 76 77 Pulse Rate [ From Monitor] Pulse Rate [ Left Dorsalis Pedis] Pulse Rate [ Left Radial] Pulse Rate [ Right Dorsalis Pedis] Pulse Rate [ Right Radial] Respiratory 21 22 24 Rate Blood Pressure 104/58 104/58 104/58 O2 Sat by Pulse 96 96 96 Oximetry 12/23/16 12/23/16 12/23/16 03:01 03:11 03:21 Temperature Pulse Rate 75 76 75 Pulse Rate [ From Monitor] Pulse Rate [ Left Dorsalis Pedis] Pulse Rate [ Left Radial] Pulse Rate [ Right Dorsalis Pedis] Pulse Rate [ Right Radial] Respiratory 20 21 19 Rate Blood Pressure 104/60 104/60 104/60 O2 Sat by Pulse 98 97 96 Oximetry 12/23/16 12/23/16 12/23/16 03:31 03:41 03:51 Temperature Pulse Rate 73 75 75 Pulse Rate [ From Monitor] Pulse Rate [ Left Dorsalis Pedis] Pulse Rate [ Left Radial] Pulse Rate [ Right Dorsalis Pedis] Pulse Rate [ Right Radial] Respiratory 20 21 21 Rate Blood Pressure 108/64 108/64 108/64 O2 Sat by Pulse 96 96 96 Oximetry 12/23/16 12/23/16 12/23/16 04:00 04:01 04:11 Temperature Pulse Rate 74 72 Pulse Rate [ 75 From Monitor] Pulse Rate [ 75 Left Dorsalis Pedis] Pulse Rate [ 75 Left Radial] Pulse Rate [ 75 Right Dorsalis Pedis] Pulse Rate [ 75 Right Radial] Respiratory 14 20 21 Rate Blood Pressure 109/63 109/63 O2 Sat by Pulse 96 97 Oximetry 12/23/16 12/23/16 12/23/16 04:21 04:25 04:31 Temperature 98.1 F Pulse Rate 73 71 Pulse Rate [ From Monitor] Pulse Rate [ Left Dorsalis Pedis] Pulse Rate [ Left Radial] Pulse Rate [ Right Dorsalis Pedis] Pulse Rate [ Right Radial] Respiratory 24 22 Rate Blood Pressure 109/63 108/60 O2 Sat by Pulse 98 97 Oximetry 12/23/16 12/23/16 12/23/16 04:41 04:51 05:01 Temperature Pulse Rate 72 72 76 Pulse Rate [ From Monitor] Pulse Rate [ Left Dorsalis Pedis] Pulse Rate [ Left Radial] Pulse Rate [ Right Dorsalis Pedis] Pulse Rate [ Right Radial] Respiratory 20 20 17 Rate Blood Pressure 108/60 108/60 112/76 O2 Sat by Pulse 97 97 98 Oximetry 12/23/16 12/23/16 12/23/16 05:11 05:21 05:30 Temperature Pulse Rate 72 72 69 Pulse Rate [ From Monitor] Pulse Rate [ Left Dorsalis Pedis] Pulse Rate [ Left Radial] Pulse Rate [ Right Dorsalis Pedis] Pulse Rate [ Right Radial] Respiratory 21 21 19 Rate Blood Pressure 112/76 112/76 113/72 O2 Sat by Pulse 97 97 96 Oximetry 12/23/16 12/23/16 12/23/16 05:41 05:51 06:01 Temperature Pulse Rate 74 72 72 Pulse Rate [ From Monitor] Pulse Rate [ Left Dorsalis Pedis] Pulse Rate [ Left Radial] Pulse Rate [ Right Dorsalis Pedis] Pulse Rate [ Right Radial] Respiratory 20 20 22 Rate Blood Pressure 113/72 113/72 123/70 O2 Sat by Pulse 97 97 97 Oximetry 12/23/16 12/23/16 12/23/16 06:11 06:21 06:31 Temperature Pulse Rate 73 74 71 Pulse Rate [ From Monitor] Pulse Rate [ Left Dorsalis Pedis] Pulse Rate [ Left Radial] Pulse Rate [ Right Dorsalis Pedis] Pulse Rate [ Right Radial] Respiratory 24 20 21 Rate Blood Pressure 123/70 123/70 123/70 O2 Sat by Pulse 97 97 97 Oximetry 12/23/16 12/23/16 12/23/16 06:41 06:51 07:01 Temperature Pulse Rate 70 72 79 Pulse Rate [ From Monitor] Pulse Rate [ Left Dorsalis Pedis] Pulse Rate [ Left Radial] Pulse Rate [ Right Dorsalis Pedis] Pulse Rate [ Right Radial] Respiratory 20 21 17 Rate Blood Pressure 123/70 123/70 121/85 O2 Sat by Pulse 97 97 96 Oximetry 12/23/16 12/23/16 12/23/16 07:11 07:21 07:23 Temperature Pulse Rate 66 70 Pulse Rate [ From Monitor] Pulse Rate [ Left Dorsalis Pedis] Pulse Rate [ Left Radial] Pulse Rate [ Right Dorsalis Pedis] Pulse Rate [ Right Radial] Respiratory 17 11 L Rate Blood Pressure 121/85 121/85 O2 Sat by Pulse 98 99 98 Oximetry 12/23/16 12/23/16 12/23/16 07:31 07:41 07:51 Temperature Pulse Rate 72 72 Pulse Rate [ From Monitor] Pulse Rate [ Left Dorsalis Pedis] Pulse Rate [ Left Radial] Pulse Rate [ Right Dorsalis Pedis] Pulse Rate [ Right Radial] Respiratory 14 Rate Blood Pressure 121/85 121/85 121/85 O2 Sat by Pulse 98 98 98 Oximetry 12/23/16 12/23/16 12/23/16 08:01 08:11 08:21 Temperature Pulse Rate 78 73 78 Pulse Rate [ From Monitor] Pulse Rate [ Left Dorsalis Pedis] Pulse Rate [ Left Radial] Pulse Rate [ Right Dorsalis Pedis] Pulse Rate [ Right Radial] Respiratory Rate Blood Pressure 134/80 134/80 134/80 O2 Sat by Pulse 96 98 98 Oximetry 12/23/16 12/23/16 12/23/16 08:31 08:41 08:43 Temperature Pulse Rate 71 72 Pulse Rate [ From Monitor] Pulse Rate [ Left Dorsalis Pedis] Pulse Rate [ Left Radial] Pulse Rate [ Right Dorsalis Pedis] Pulse Rate [ Right Radial] Respiratory Rate Blood Pressure 120/81 120/81 O2 Sat by Pulse 95 100 99 Oximetry 12/23/16 12/23/16 12/23/16 08:51 09:01 09:11 Temperature Pulse Rate 81 82 78 Pulse Rate [ From Monitor] Pulse Rate [ Left Dorsalis Pedis] Pulse Rate [ Left Radial] Pulse Rate [ Right Dorsalis Pedis] Pulse Rate [ Right Radial] Respiratory Rate Blood Pressure 120/81 125/89 125/89 O2 Sat by Pulse 100 99 99 Oximetry 12/23/16 12/23/16 12/23/16 09:21 09:30 09:41 Temperature Pulse Rate 83 67 75 Pulse Rate [ From Monitor] Pulse Rate [ Left Dorsalis Pedis] Pulse Rate [ Left Radial] Pulse Rate [ Right Dorsalis Pedis] Pulse Rate [ Right Radial] Respiratory 13 Rate Blood Pressure 125/89 132/93 132/93 O2 Sat by Pulse 100 98 100 Oximetry 12/23/16 12/23/16 12/23/16 09:51 10:00 10:11 Temperature Pulse Rate 84 75 70 Pulse Rate [ From Monitor] Pulse Rate [ Left Dorsalis Pedis] Pulse Rate [ Left Radial] Pulse Rate [ Right Dorsalis Pedis] Pulse Rate [ Right Radial] Respiratory 14 18 9 L Rate Blood Pressure 132/93 132/90 132/90 O2 Sat by Pulse 99 96 98 Oximetry 12/23/16 12/23/16 12/23/16 10:21 10:31 10:41 Temperature Pulse Rate 85 83 85 Pulse Rate [ From Monitor] Pulse Rate [ Left Dorsalis Pedis] Pulse Rate [ Left Radial] Pulse Rate [ Right Dorsalis Pedis] Pulse Rate [ Right Radial] Respiratory 13 12 19 Rate Blood Pressure 132/90 132/90 132/90 O2 Sat by Pulse 100 100 100 Oximetry 12/23/16 12/23/16 10:51 11:01 Temperature Pulse Rate 86 74 Pulse Rate [ From Monitor] Pulse Rate [ Left Dorsalis Pedis] Pulse Rate [ Left Radial] Pulse Rate [ Right Dorsalis Pedis] Pulse Rate [ Right Radial] Respiratory 13 22 Rate Blood Pressure 132/90 143/92 O2 Sat by Pulse 100 98 Oximetry Constitutional: no acute distress Eyes: non-icteric ENT: oropharynx moist Neck: supple, no lymphadenopathy Effort: normal Ascultation: Bilateral: clear Cardiovascular: regular rate and rhythm Gastrointestinal: normoactive bowel sounds, soft, non-tender, non-distended Integumentary: normal Extremities: no cyanosis, no edema, pulses normal, no ischemia or petechiae Neurologic: normal mental status, non-focal exam, pupils equal and round, motor strength normal and Psychiatric: mood appropriate, affect normal CBC and BMP: 12/23/16 04:05 12/23/16 04:05 ABG, PT/INR, D-dimer: ABG POC ABG pH 7.418 (7.35-7.45) 12/22/16 10:21 POC ABG pCO2 33.9 (35-45) L 12/22/16 10:21 POC ABG pO2 125 (80-105) H 12/22/16 10:21 POC ABG HCO3 21.9 12/22/16 10:21 POC ABG Total CO2 23 12/22/16 10:21 POC ABG O2 Sat 99 12/22/16 10:21 Abnormal lab findings: Abnormal Labs 12/22/16 12/22/16 12/23/16 04:59 10:21 04:05 WBC 12.4 H Lymph % (Auto) 6.6 L Lymph # 0.8 L Seg Neutrophils % 89.2 H Seg Neutrophils # 11.1 H POC ABG pCO2 33.9 L POC ABG pO2 161 H 125 H Glucose Albumin 12/23/16 04:05 WBC Lymph % (Auto) Lymph # Seg Neutrophils % Seg Neutrophils # POC ABG pCO2 POC ABG pO2 Glucose 150 H Albumin 3.3 L
--- NOTE | 2016-12-23 14:17 | Progress Note ---
Assessment and Plan Assessment and plan: --Angioedema Allergic reaction to Toradol Status post extubation, tapering dose of steroids --Acute respiratory failure secondary to angioedema Status post extubation ----Left sided tingling and numbness CT head without contrast is negative, physical therapy, rest the workup as outpatient as needed --DVT prophylaxis with Lovenox --GI prophylaxis with Pepcid --Full CODE STATUS Closely monitor the patient had just the management as needed Consults and recommendations noted and appreciated Plan of care discussed with the patient and the family member at the bedside Transfer out of ICU to medical floor Possible discharge home tomorrow if stable History Interval history: Patient seen and evaluated medical records reviewed No new events reported by the nursing staff Extubated yesterday, complains of mild soreness in the throat Tolerating full liquids to soft diet Alert awake oriented 3 not in acute distress Hospitalist Physical - Constitutional Vitals: Temp Pulse Resp BP Pulse Ox 98.1 F 67 14 128/77 98 12/23/16 04:25 12/23/16 13:00 12/23/16 13:00 12/23/16 12:41 12/23/16 13:00 General appearance: Present: no acute distress, well-nourished, obese - EENT Eyes: Present: PERRL, EOM intact - Neck Neck: Present: supple, normal ROM - Respiratory Respiratory effort: normal Respiratory: bilateral: diminished, negative: rales, rhonchi, wheezing - Cardiovascular Rhythm: regular Heart Sounds: Present: S1 & S2 - Extremities Extremities: no ischemia, pulses intact, pulses symmetrical Peripheral Pulses: within normal limits - Abdominal General gastrointestinal: soft, non-tender, non-distended, normal bowel sounds - Integumentary Integumentary: Present: clear, warm - Psychiatric Psychiatric: appropriate mood/affect, cooperative - Neurologic Neurologic: CNII-XII intact, moves all extremities Results - Labs CBC & Chem 7: 12/23/16 04:05 12/23/16 04:05 Labs: Laboratory Last Values WBC 12.4 K/mm3 (4.5-11.0) H 12/23/16 04:05 RBC 4.17 M/mm3 (3.65-5.03) 12/23/16 04:05 Hgb 12.3 gm/dl (10.1-14.3) 12/23/16 04:05 Hct 37.3 % (30.3-42.9) 12/23/16 04:05 MCV 89 fl (79-97) 12/23/16 04:05 MCH 29 pg (28-32) 12/23/16 04:05 MCHC 33 % (30-34) 12/23/16 04:05 RDW 13.2 % (13.2-15.2) 12/23/16 04:05 Plt Count 226 K/mm3 (140-440) 12/23/16 04:05 Lymph % (Auto) 6.6 % (13.4-35.0) L 12/23/16 04:05 [place] % (Auto) 4.1 % (0.0-7.3) 12/23/16 04:05 Eos % (Auto) 0.0 % (0.0-4.3) 12/23/16 04:05 Baso % (Auto) 0.1 % (0.0-1.8) 12/23/16 04:05 Lymph # 0.8 K/mm3 (1.2-5.4) L 12/23/16 04:05 [place] # 0.5 K/mm3 (0.0-0.8) 12/23/16 04:05 Eos # 0.0 K/mm3 (0.0-0.4) 12/23/16 04:05 Baso # 0.0 K/mm3 (0.0-0.1) 12/23/16 04:05 Seg Neutrophils % 89.2 % (40.0-70.0) H 12/23/16 04:05 Seg Neutrophils # 11.1 K/mm3 (1.8-7.7) H 12/23/16 04:05 POC ABG pH 7.418 (7.35-7.45) 12/22/16 10:21 POC ABG pCO2 33.9 (35-45) L 12/22/16 10:21 POC ABG pO2 125 (80-105) H 12/22/16 10:21 POC ABG HCO3 21.9 12/22/16 10:21 POC ABG Total CO2 23 12/22/16 10:21 POC ABG O2 Sat 99 12/22/16 10:21 POC ABG Base Excess -3 12/22/16 10:21 FiO2 25 % 12/22/16 10:21 Sodium 137 mmol/L (137-145) 12/23/16 04:05 Potassium 3.8 mmol/L (3.6-5.0) 12/23/16 04:05 Chloride 104.7 mmol/L (98-107) 12/23/16 04:05 Carbon Dioxide 22 mmol/L (22-30) 12/23/16 04:05 Anion Gap 14 mmol/L 12/23/16 04:05 BUN 17 mg/dL (7-17) 12/23/16 04:05 Creatinine 0.8 mg/dL (0.7-1.2) 12/23/16 04:05 Estimated GFR > 60 ml/min 12/23/16 04:05 BUN/Creatinine Ratio 21.25 % 12/23/16 04:05 Glucose 150 mg/dL (65-100) H 12/23/16 04:05 Calcium 8.5 mg/dL (8.4-10.2) 12/23/16 04:05 Magnesium 2.3 mg/dL (1.7-2.3) 12/23/16 04:05 Total Bilirubin 0.4 mg/dL (0.1-1.2) 12/23/16 04:05 Direct Bilirubin < 0.2 mg/dL (0-0.2) 12/23/16 04:05 Indirect Bilirubin 0.2 mg/dL 12/23/16 04:05 AST 18 units/L (5-40) 12/23/16 04:05 ALT 7 units/L (7-56) 12/23/16 04:05 Alkaline Phosphatase 41 units/L (35-129) 12/23/16 04:05 Total Protein 6.7 g/dL (6.3-8.2) 12/23/16 04:05 Albumin 3.3 g/dL (3.9-5) L 12/23/16 04:05 Albumin/Globulin Ratio 1.0 % 12/23/16 04:05
[2016-12-23] MEDS: NAPROSYN PO PRN (22:54)
[2016-12-23] MEDS: PEPCID PO SCH (22:54)
[2016-12-24] MEDS: D5/0.45NS 1,000 ML IV SCH ×3 (01:39→21:25)
[2016-12-24] MEDS: LOVENOX SUB-Q SCH (10:18)
--- NOTE | 2016-12-24 11:14 | Progress Note ---
Assessment and Plan - Patient Problems (1) Acute respiratory failure Current Visit: Yes Status: Acute Qualifiers: Respiratory failure complication: R (2) Allergic reaction to drug Current Visit: Yes Status: Acute Qualifiers: Encounter type: E Subjective Date of service: 12/24/16 Principal diagnosis: Acute Respiratory Failure; Angioedema reaction Interval history: Seen and examined at bedside; 24 hour events reviewed; nursing and respiratory care staff consulted; no adverse overnight events reported to me; Objective Vital Signs - 12hr 12/24/16 12/24/16 12/24/16 00:00 04:00 08:00 Temperature 98.4 F 98.6 F 98.3 F Pulse Rate [ 62 66 Left Radial] Pulse Rate [ 65 Right Radial] Respiratory 18 20 18 Rate Blood Pressure 140/72 142/68 136/67 O2 Sat by Pulse 98 Oximetry Constitutional: no acute distress Eyes: non-icteric ENT: oropharynx moist Neck: supple, no lymphadenopathy Effort: normal Ascultation: Bilateral: clear Cardiovascular: regular rate and rhythm Gastrointestinal: normoactive bowel sounds, soft, non-tender, non-distended Integumentary: normal Extremities: no cyanosis, no edema, pulses normal, no ischemia or petechiae Neurologic: normal mental status, non-focal exam, pupils equal and round, motor strength normal and Psychiatric: mood appropriate, affect normal CBC and BMP: 12/23/16 04:05 12/23/16 04:05 ABG, PT/INR, D-dimer: ABG POC ABG pH 7.418 (7.35-7.45) 12/22/16 10:21 POC ABG pCO2 33.9 (35-45) L 12/22/16 10:21 POC ABG pO2 125 (80-105) H 12/22/16 10:21 POC ABG HCO3 21.9 12/22/16 10:21 POC ABG Total CO2 23 12/22/16 10:21 POC ABG O2 Sat 99 12/22/16 10:21 Abnormal lab findings: Abnormal Labs 12/22/16 12/22/16 12/23/16 04:59 10:21 04:05 WBC 12.4 H Lymph % (Auto) 6.6 L Lymph # 0.8 L Seg Neutrophils % 89.2 H Seg Neutrophils # 11.1 H POC ABG pCO2 33.9 L POC ABG pO2 161 H 125 H Glucose Albumin 12/23/16 04:05 WBC Lymph % (Auto) Lymph # Seg Neutrophils % Seg Neutrophils # POC ABG pCO2 POC ABG pO2 Glucose 150 H Albumin 3.3 L
[2016-12-24] MEDS ORDERED: CEPACOL X STRENGTH MM PRN (11:35)
[2016-12-24] MEDS ORDERED: LIDOCAINE VISCOUS 2% PO PRN (11:36)
--- NOTE | 2016-12-24 11:40 | Progress Note ---
Assessment and Plan Assessment and plan: --Angioedema Allergic reaction to Toradol Status post extubation, tapering dose of steroids Tongue lip throat swelling completely resolved However patient complains of some sore throat throat Able to tolerate liquid and pured diet, lidocaine swish and swallow, Cepacol lozenges Continue tapering dose of steroids, patient is allergic to Benadryl --Acute respiratory failure secondary to angioedema Status post extubation , nasal cannula oxygen titrated to O2 sats to more than 90% ----Left sided tingling and numbness CT head without contrast is negative, CT neck is negative Increase ambulation as tolerated, pain medications 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 --DVT prophylaxis with Lovenox --GI prophylaxis with Pepcid --Full CODE STATUS Closely monitor the patient and discharge home tomorrow if stable History Interval history: Patient seen and evaluated medical records reviewed Patient feels slightly better complains of left shoulder pain intermittent Denies nausea vomiting abdominal pain Has mild sore throat which hurts while swallowing Alert awake oriented 3 not in acute distress Hospitalist Physical - Constitutional Vitals: Temp Pulse Resp BP Pulse Ox 98.3 F 65 18 136/67 98 12/24/16 08:00 12/24/16 08:00 12/24/16 08:00 12/24/16 08:00 12/24/16 08:00 General appearance: Present: no acute distress, well-nourished, obese - EENT Eyes: Present: PERRL, EOM intact - Neck Neck: Present: supple, normal ROM - Respiratory Respiratory effort: normal Respiratory: bilateral: diminished, negative: rales, rhonchi, wheezing - Cardiovascular Rhythm: regular Heart Sounds: Present: S1 & S2 - Extremities Extremities: no ischemia, pulses intact, pulses symmetrical Peripheral Pulses: within normal limits - Abdominal General gastrointestinal: soft, non-tender, non-distended, normal bowel sounds - Integumentary Integumentary: Present: clear, warm - Psychiatric Psychiatric: appropriate mood/affect, cooperative - Neurologic Neurologic: CNII-XII intact, moves all extremities Results - Labs CBC & Chem 7: 12/23/16 04:05 12/23/16 04:05 Labs: Laboratory Last Values WBC 12.4 K/mm3 (4.5-11.0) H 12/23/16 04:05 RBC 4.17 M/mm3 (3.65-5.03) 12/23/16 04:05 Hgb 12.3 gm/dl (10.1-14.3) 12/23/16 04:05 Hct 37.3 % (30.3-42.9) 12/23/16 04:05 MCV 89 fl (79-97) 12/23/16 04:05 MCH 29 pg (28-32) 12/23/16 04:05 MCHC 33 % (30-34) 12/23/16 04:05 RDW 13.2 % (13.2-15.2) 12/23/16 04:05 Plt Count 226 K/mm3 (140-440) 12/23/16 04:05 Lymph % (Auto) 6.6 % (13.4-35.0) L 12/23/16 04:05 [place] % (Auto) 4.1 % (0.0-7.3) 12/23/16 04:05 Eos % (Auto) 0.0 % (0.0-4.3) 12/23/16 04:05 Baso % (Auto) 0.1 % (0.0-1.8) 12/23/16 04:05 Lymph # 0.8 K/mm3 (1.2-5.4) L 12/23/16 04:05 [place] # 0.5 K/mm3 (0.0-0.8) 12/23/16 04:05 Eos # 0.0 K/mm3 (0.0-0.4) 12/23/16 04:05 Baso # 0.0 K/mm3 (0.0-0.1) 12/23/16 04:05 Seg Neutrophils % 89.2 % (40.0-70.0) H 12/23/16 04:05 Seg Neutrophils # 11.1 K/mm3 (1.8-7.7) H 12/23/16 04:05 POC ABG pH 7.418 (7.35-7.45) 12/22/16 10:21 POC ABG pCO2 33.9 (35-45) L 12/22/16 10:21 POC ABG pO2 125 (80-105) H 12/22/16 10:21 POC ABG HCO3 21.9 12/22/16 10:21 POC ABG Total CO2 23 12/22/16 10:21 POC ABG O2 Sat 99 12/22/16 10:21 POC ABG Base Excess -3 12/22/16 10:21 FiO2 25 % 12/22/16 10:21 Sodium 137 mmol/L (137-145) 12/23/16 04:05 Potassium 3.8 mmol/L (3.6-5.0) 12/23/16 04:05 Chloride 104.7 mmol/L (98-107) 12/23/16 04:05 Carbon Dioxide 22 mmol/L (22-30) 12/23/16 04:05 Anion Gap 14 mmol/L 12/23/16 04:05 BUN 17 mg/dL (7-17) 12/23/16 04:05 Creatinine 0.8 mg/dL (0.7-1.2) 12/23/16 04:05 Estimated GFR > 60 ml/min 12/23/16 04:05 BUN/Creatinine Ratio 21.25 % 12/23/16 04:05 Glucose 150 mg/dL (65-100) H 12/23/16 04:05 Calcium 8.5 mg/dL (8.4-10.2) 12/23/16 04:05 Magnesium 2.3 mg/dL (1.7-2.3) 12/23/16 04:05 Total Bilirubin 0.4 mg/dL (0.1-1.2) 12/23/16 04:05 Direct Bilirubin < 0.2 mg/dL (0-0.2) 12/23/16 04:05 Indirect Bilirubin 0.2 mg/dL 12/23/16 04:05 AST 18 units/L (5-40) 12/23/16 04:05 ALT 7 units/L (7-56) 12/23/16 04:05 Alkaline Phosphatase 41 units/L (35-129) 12/23/16 04:05 Total Protein 6.7 g/dL (6.3-8.2) 12/23/16 04:05 Albumin 3.3 g/dL (3.9-5) L 12/23/16 04:05 Albumin/Globulin Ratio 1.0 % 12/23/16 04:05
[2016-12-24] MEDS: PEPCID PO SCH ×2 (15:29→21:20)
[2016-12-24] MEDS: NAPROSYN PO PRN (16:47)
[2016-12-25 08:50] LABS: Anion Gap 13 mmol/L; BUN/Creatinine Ratio 13.33; Blood Urea Nitrogen 8 mg/dL (7-17); Calcium 8.4 mg/dL (8.4-10.2); Carbon Dioxide 25 mmol/L (22-30); Chloride 104.8 mmol/L (98-107); Creatine Kinase 51 units/L (30-135); Glucose 120 mg/dL (65-100); Magnesium 2.2 mg/dL (1.7-2.3); Potassium 3.7 mmol/L (3.6-5.0); Sodium 139 mmol/L (137-145)
[2016-12-25 08:54] LABS: Creatine Kinase MB < 1.0 ng/mL (0.0-4.0)
[2016-12-25 09:36] VITALS: BP 147/84
[2016-12-25] MEDS: LOVENOX SUB-Q SCH (10:02)
[2016-12-25] MEDS: PEPCID PO SCH (10:02)
[2016-12-25 11:00] LABS: Hematocrit 39.4 % (30.3-42.9); Hemoglobin 13.1 gm/dl (10.1-14.3); Mean Corpuscular HGB Conc 33 % (30-34); Mean Corpuscular Hemoglobin 30 pg (28-32); Mean Corpuscular Volume 90 fl (79-97); Platelet Count 236 K/mm3 (140-440); Red Blood Count 4.38 M/mm3 (3.65-5.03); White Blood Count 8.6 K/mm3 (4.5-11.0)
--- NOTE | 2016-12-25 12:41 | Progress Note ---
Assessment and Plan - Patient Problems (1) Acute respiratory failure Current Visit: Yes Status: Acute (2) Allergic reaction to drug Current Visit: Yes Status: Acute Subjective Date of service: 12/25/16 Principal diagnosis: Acute Respiratory Failure; Angioedema reaction Interval history: Seen and examined at bedside; 24 hour events reviewed; nursing and respiratory care staff consulted; no adverse overnight events reported to me; Objective Vital Signs - 12hr 12/25/16 12/25/16 04:20 08:30 Temperature 98.1 F 98.0 F Pulse Rate [ 65 60 Right Radial] Respiratory 18 20 Rate Blood Pressure 143/95 147/84 O2 Sat by Pulse 100 99 Oximetry Constitutional: no acute distress Eyes: non-icteric ENT: oropharynx moist Neck: supple, no lymphadenopathy Effort: normal Ascultation: Bilateral: clear Cardiovascular: regular rate and rhythm Gastrointestinal: normoactive bowel sounds, soft, non-tender, non-distended Integumentary: normal Extremities: no cyanosis, no edema, pulses normal, no ischemia or petechiae Neurologic: normal mental status, non-focal exam, pupils equal and round, motor strength normal and Psychiatric: mood appropriate, affect normal CBC and BMP: 12/25/16 10:43 12/25/16 08:11 ABG, PT/INR, D-dimer: ABG POC ABG pH 7.418 (7.35-7.45) 12/22/16 10:21 POC ABG pCO2 33.9 (35-45) L 12/22/16 10:21 POC ABG pO2 125 (80-105) H 12/22/16 10:21 POC ABG HCO3 21.9 12/22/16 10:21 POC ABG Total CO2 23 12/22/16 10:21 POC ABG O2 Sat 99 12/22/16 10:21 Abnormal lab findings: Abnormal Labs 12/22/16 12/22/16 12/23/16 04:59 10:21 04:05 WBC 12.4 H RDW Lymph % (Auto) 6.6 L Lymph # 0.8 L Seg Neutrophils % 89.2 H Seg Neutrophils # 11.1 H POC ABG pCO2 33.9 L POC ABG pO2 161 H 125 H Creatinine Glucose Albumin 12/23/16 12/25/16 12/25/16 04:05 08:11 10:43 WBC RDW 13.0 L Lymph % (Auto) Lymph # Seg Neutrophils % Seg Neutrophils # POC ABG pCO2 POC ABG pO2 Creatinine 0.6 L Glucose 150 H 120 H Albumin 3.3 L
--- NOTE | 2016-12-25 12:44 | Discharge Summary ---
Providers - Providers Date of Admission: 12/22/16 00:56 Date of discharge: 12/25/16 Attending physician: NYDIA NI 12/23/16 14:13 Physical Therapy Evaluation and Treat [CONS] Routine Comment: Reason For Exam: lt sided numbness Primary care physician: RELIEF SALESPERSON Hospitalization Condition: Stable Disposition: DISCHARGED TO HOME OR SELFCARE Time spent for discharge: 32 min Core Measure Documentation - Palliative Care Palliative Care/ Comfort Measures: Not Applicable - Core Measures Any of the following diagnoses?: none Exam - Constitutional Vitals: Temp Pulse Resp BP Pulse Ox 98.0 F 60 20 147/84 99 12/25/16 08:30 12/25/16 08:30 12/25/16 08:30 12/25/16 08:30 12/25/16 08:30 General appearance: Present: no acute distress, well-nourished - EENT Eyes: Present: PERRL, EOM intact - Neck Neck: Present: supple, normal ROM - Respiratory Respiratory effort: normal Respiratory: negative: rales, rhonchi, wheezing - Cardiovascular Rhythm: regular Heart Sounds: Present: S1 & S2 - Extremities Extremities: no ischemia, pulses intact, pulses symmetrical Peripheral Pulses: within normal limits - Abdominal General gastrointestinal: Present: soft, non-tender, non-distended, normal bowel sounds - Integumentary Integumentary: Present: clear, warm - Musculoskeletal Musculoskeletal: strength equal bilaterally - Psychiatric Psychiatric: appropriate mood/affect, cooperative - Neurologic Neurologic: CNII-XII intact, moves all extremities Plan Activity: no restrictions Diet: advance as tolerated, other (soft diet) Additional Instructions: Diet as tolerated. If you continue have intermittent sore throat, advised to see private ENT specialist for further evaluation. advised to see private neurologist for further evaluation if you have any tingling and numbness or paresthesias. Advised 2 days rest on 12/26/2016 and . Check with primary care physician for further instructions Follow up with: PRIMARY CARE, [Primary Care Provider] - 3-5 Days Prescriptions: Benzocaine/Menth/Cetylpyrd [Cepacol X Strength] 1 each MM Q2H PRN #14 packet PRN Reason: Sore Throat Naproxen [Naprosyn TAB] 500 mg PO Q12H PRN #14 tablet PRN Reason: Pain, Mild (1-3) Prednisone [predniSONE 10 mg (6-Day Pack, 21 Tabs)] 10 mg PO .TAPER #1 tab.ds.pk
== END 2016-12-25 16:28 | disposition home or self-care (01) | DRG 208 ==
LOC: ED 16:49 → CC1 12-22 00:56 → 3A 12-23 18:54
PROVIDERS: ADMIT Internal Medicine; ATTEND Internal Medicine
PROC: 5A1935Z Respiratory Ventilation, Less than 24 Consecutive Hours (ICD-10-PCS; principal; 2016-12-21)
PROC: 0BH17EZ Insertion of Endotracheal Airway into Trachea, Via Natural or Artificial Opening (ICD-10-PCS; 2016-12-21)
PROC: 4A033R1 Measurement of Arterial Saturation, Peripheral, Percutaneous Approach (ICD-10-PCS; 2016-12-21)
DX: J96.01 Acute respiratory failure with hypoxia (principal); T78.3XXA Angioneurotic edema, initial encounter; J45.909 Unspecified asthma, uncomplicated; M54.2 Cervicalgia; I10 Essential (primary) hypertension; Z88.5 Allergy status to narcotic agent; Z88.8 Allergy status to other drugs, medicaments and biological substances; Z91.018 Allergy to other foods; Z98.51 Tubal ligation status; Z79.899 Other long term (current) drug therapy; Z88.6 Allergy status to analgesic agent; Z91.041 Radiographic dye allergy status
CPT/HCPCS: 36415; 36600; 51702; 70450; 71010; 72125; 80048; 80074; 82550; 82553; 82803; 83735; 84484; 85025; 85027; 87070; 87205; 93005; 93010; 94002; 94003; 94760; 96372; 96374; 96375; 96376; J0171; J0330; J0360; J1100; J1650; J1885; J2060; J2704; J2920; J2930

== ENCOUNTER 2017-01-09 12:55 | Emergency (ER) | payer SELFPAY ==
[2017-01-10] MEDS ORDERED: MOTRIN PO ONE (00:10)
[2017-01-10] MEDS ORDERED: ATARAX PO ONE (00:10)
--- NOTE | 2017-01-10 00:10 | Emergency Department Report ---
HPI - General Chief Complaint: Eye Problems Time Seen by Provider: 01/09/17 23:23 - HPI HPI: 41-year-old female presents to ED complaining of bilateral eye itching and draining 1 day. Patient states the right eye is worse than the left. Patient states no vision loss but admits blurry vision to the right eye. Patient states she did not have any foreign objects in her eyes will go into her eyes. Patient states symptoms just started yesterday and is getting worse. Patient denies any feeling of foreign objects in the eye .Patient describes pain as throbbing in nature and aching. Patient admitted sensitivity to light stay in the light makes it worse. Patient states right eye is red and painful. She denies fevers/chills/nausea/vomiting/abdominal pain/recent cold or URI. She denies chest pain/shortness of breath/cough/rhinorrhea ED Past Medical Hx - Past Medical History Hx Hypertension: Yes Hx Diabetes: No Hx Asthma: Yes Hx COPD: No - Surgical History Additional Surgical History: ablation for fibroid tumor. TUBAL LIGATION, October 2016 ectopic status post tubal ligation requiring left tube removal - Social History Smoking Status: Never Smoker Substance Use Type: None - Medications Home Medications: Home Medications Medication Instructions Recorded Confirmed Last Taken Type amLODIPine [Norvasc] 20 mg PO DAILY #30 tablet 09/14/15 12/23/16 12/21/16 Rx Pnv with Ca,No.72/Iron/FA 1 each PO QDAY #30 tablet 11/14/15 12/23/16 12/21/16 Rx [ Vitamin Plus Low Iron] metroNIDAZOLE 0.75% [Metrogel 1 applicatio TP QHS #1 tube 11/14/15 12/23/16 Unknown Rx 0.75% TOPICAL] Azithromycin [Zithromax Z-ULYSSES] 250 mg PO DAILY #1 package 12/28/15 12/23/16 Unknown Rx Benzonatate [Tessalon Perles] 100 mg PO Q8HR PRN #60 capsule 12/28/15 12/23/16 Unknown Rx Benzocaine/Menth/Cetylpyrd 1 each MM Q2H PRN #14 packet 12/25/16 Unknown Rx [Cepacol X Strength] Cetirizine HCl [ZyrTEC] 10 mg PO DAILY #20 tab.rapdis 01/10/17 Unknown Rx EPINEPHrine [Epipen 2-Ulysses] 0.3 mg IM PRN #1 pack 01/10/17 Unknown Rx Naproxen [Naprosyn TAB] 500 mg PO Q12H PRN #14 tablet 01/10/17 Unknown Rx Prednisone [predniSONE 10 mg 10 mg PO .TAPER #1 tab.ds.pk 01/10/17 Unknown Rx (6-Day Pack, 21 Tabs)] ED Review of Systems ROS: Stated complaint: RT EYE SWOLLEN Other details as noted in HPI Constitutional: denies: chills, fever, weakness Eyes: eye pain, eye discharge (clear,), other (itching , redness, swollen). denies: vision change ENT: denies: ear pain, throat pain, dental pain, hearing loss, congestion Respiratory: denies: cough, shortness of breath, wheezing Cardiovascular: denies: chest pain, palpitations Endocrine: no symptoms reported. denies: excessive sweating Gastrointestinal: denies: abdominal pain, nausea, diarrhea Genitourinary: denies: urgency, dysuria, discharge Musculoskeletal: denies: back pain, joint swelling, arthralgia Skin: denies: rash, lesions, pruritus Neurological: denies: headache, weakness, numbness, paresthesias, confusion Psychiatric: denies: anxiety, depression Hematological/Lymphatic: denies: easy bleeding, easy bruising Physical Exam - Physical Exam Vital Signs: Vital Signs 01/09/17 13:17 Temperature 98.2 F Pulse Rate 92 H Respiratory 18 Rate Blood Pressure 157/114 O2 Sat by Pulse 100 Oximetry Physical Exam: GENERAL: Alert and oriented x3, no apparent distress, Normal Gait, atraumatic. HEAD: Head is normocephalic and a-traumatic. EYES: Painful to assess EOM. She never to move her eye muscles due to pain Pupils are equal, round, and reactive to light and accommodation. Dry eyes sclera severely erythematous, surrounding mild orbital cellulitis and tenderness to palpation. Vision is intact. slit lamp performed no corneal abrasions seen bilaterally EARS: symetrical, atraumatic, non tender, ear canal clear and moderate cerumen, tympanic membrance non inflamed. gross auditory nml bilaterally. NOSE: Nose symetrical, Nontender,Nares appeared normal. MOUTH:Mouth is well hydrated and without lesions. Tonsils nonerythematous or swollen, Uvula midline, Tongue not elevated. Mucous membranes are moist. Posterior pharynx clear, no exudate or lesions. Patent airways. NECK: Supple. Non edematous, No carotid bruits. No lymphadenopathy or thyromegaly. No C-spine tenderness LUNGS: Symetrical with respiration, No wheezing, no rales or crackles, CTAB. HEART: S1, S2 present, regular rate and rhythm without murmur, no rubs, no gallops. EXTREMITIES/MUSCULOSKELETAL: No cyanosis, clubbing, rash, lesions or edema. Full ROM bilaterally. NEUROLOGIC: No focal Deficit, Cranial nerves II through XII are grossly intact. No loss of sensation, SKIN: Warm and dry, No lesions, No ulceration or induration present. ED Course Vital Signs 01/09/17 13:17 Temperature 98.2 F Pulse Rate 92 H Respiratory 18 Rate Blood Pressure 157/114 O2 Sat by Pulse 100 Oximetry ED Medical Decision Making - Medical Decision Making 41-year-old female presented allergic conjunctivitis. ED course: Patient received Claritin, prednisone, Motrin for pain in ED. Patient had no relief after 2 drops of tetracaine was applied into the eyes Discussed the patient to take medication as prescribed. patient allergy to a lot of medications caution with prescribing the medication ED. Discussed the patient to rest and apply warm compresses to the eye and follow up with primary care physician. Discussed if worsening symptoms to return to ED. Discussed case with my attending Dr. Anthony who evaluated the patient diagnosed of an allergic conjunctivitis and discussed the patient to follow instructions as given. Patient is in moderate discomfort due to eye pain and irritation. Discussed with patient if not better to follow-up with Manager [employer]ial has referred. - Differential Diagnosis 1. Orbital cellulitis 2. Allergic conjunctivitis 3. Iritis 4. Corneal a Critical care attestation.: If time is entered above; I have spent that time in minutes in the direct care of this critically ill patient, excluding procedure time. ED Disposition Clinical Impression: Allergic eye reaction Allergic conjunctivitis Qualifiers: Laterality: right Qualified Code(s): H10.11 - Acute atopic conjunctivitis, right eye Disposition: DISCHARGED TO HOME OR SELFCARE Is pt being admited?: No Does the pt Need Aspirin: No Condition: Stable Instructions: Conjunctivitis (ED), Orbital Cellulitis (ED) Additional Instructions: You can ask the pharmacist and take [id number] sleeping aid such as Unisom Take it as prescribed by the pharmacist. Follow-up with primary care physician Follow-up with eye doctor Prescriptions: Cetirizine HCl [ZyrTEC] 10 mg PO DAILY #20 tab.rapdis EPINEPHrine [Epipen 2-Ulysses] 0.3 mg IM PRN #1 pack Naproxen [Naprosyn TAB] 500 mg PO Q12H PRN #14 tablet PRN Reason: Pain, Mild (1-3) Prednisone [predniSONE 10 mg (6-Day Pack, 21 Tabs)] 10 mg PO .TAPER #1 tab.ds.pk Referrals: PRIMARY CARE, [Primary Care Provider] - 3-5 Days LETHA LOZANO MD [Staff Physician] - 3-5 Days [facility] [Outside] - 3-5 Days [facility] [Outside] - 3-5 Days YANELIS PASTOR MD [Staff Physician] - 3-5 Days GLENN MOREL MD [Staff Physician] - 3-5 Days Forms: Work/School Release Form(ED) Time of Disposition: 00:52
[2017-01-10] MEDS ORDERED: DELTASONE PO ONE (00:28)
[2017-01-10] MEDS ORDERED: CLARITIN PO ONE (00:47)
[2017-01-10 01:24] VITALS: BP 146/67
== END 2017-01-10 01:25 | disposition home or self-care (01) ==
LOC: ED 12:55
DX: H10.11 Acute atopic conjunctivitis, right eye (principal); T78.49XA Other allergy, initial encounter; X58.XXXA Exposure to other specified factors, initial encounter; I10 Essential (primary) hypertension; J45.909 Unspecified asthma, uncomplicated; Z91.018 Allergy to other foods; Z88.8 Allergy status to other drugs, medicaments and biological substances; Z88.6 Allergy status to analgesic agent
CPT/HCPCS: 99283; J7512